=== PATIENT | female | born 1970 | race Caucasian/White ===

== ENCOUNTER 2017-02-26 22:48 | Emergency (ER) | payer SELFPAY ==
[~2017-02-26] VITALS: Ht 162.6 cm; Wt 63.5 kg
--- NOTE | 2017-02-26 23:07 | NUR ---
Dr. Cowan at bedside for eval.
[2017-02-26] MEDS ORDERED: LORA-258 PO (23:10)
--- NOTE | 2017-02-26 23:16 | NUR ---
Assisted patient to bathroom and provided urine cup, Patient voided in toilet and not in cup. patient is refusing blood draw and EKG at this time. MD issa.
--- NOTE | 2017-02-26 23:20 | NUR ---
Patient refuses CXR. patient denies SI at this time. Daughter is at bedside and ready to take patient home.
[2017-02-26 23:25] VITALS: BP 96/62
== END 2017-02-26 23:25 | disposition home or self-care (01) ==
LOC: ER 22:49
DX: F10.129 Alcohol abuse with intoxication, unspecified (principal); F41.9 Anxiety disorder, unspecified
CPT/HCPCS: 71010; 93005; A4663